=== PATIENT | male | born 1950 | race Caucasian/White ===

== ENCOUNTER 2020-01-20 20:35 | Emergency (ER) | payer MEDICARE, SELFPAY ==
[2020-01-20 20:38] VITALS: BP 112/72; PULSE 84; RESP 15; TEMP 36.7; O2SAT 100; BMI 22.4
[2020-01-20] MEDS: LIDOCAINE 1% W/EPI 1 ML SUBCUT (21:34)
--- NOTE | 2020-01-20 21:35 | PC.NURSE ---
at bedside for lac repair
--- NOTE | 2020-01-20 22:01 | ED.WOUNDLAC ---
HPI - Wound/Laceration General Chief Complaint: Wound/Laceration Stated Complaint: tripped on a stair, hit his head,swelling Time Seen by Provider: 01/20/20 20:50 Source: patient Mode of arrival: Family Vehicle Limitations: no limitations History of Present Illness HPI narrative: 69-year-old male otherwise healthy presents with his for a trip and fall with a head laceration. He takes no blood thinners, did not have a loss of consciousness and denies nausea or vomiting. He has been acting at his baseline since the injury. He tripped on a stair and fell striking his forehead on and upright pole in that he rolled when hitting the ground. He denies any other injury. He washed extensively, went to dinner with family and then came in for evaluation Onset (ago): hour(s) Location: scalp Place: home Patient tetanus UTD: Yes Context: accidental Associated symptoms: none Treatments prior to arrival: bandage Review of Systems Constitutional Constitutional: Denies chills, Denies fatigue, Denies fever(s), Denies frequent falls, Denies lethargy and Denies weakness Eyes Eyes: Denies change in vision, Denies eye discharge, Denies irritation and Denies loss of vision ENT Ears, Nose, Mouth, and Throat: Denies change in voice, Denies dizziness, Denies neck pain, Denies sore throat and Denies throat swelling Cardiovascular Cardiovascular: Denies chest pain, Denies irregular heart rhythm, Denies lightheadedness, Denies palpitations, Denies dyspnea, Denies dyspnea on exertion and Denies orthopnea Respiratory Respiratory: Denies cough, Denies dyspnea, Denies dyspnea on exertion and Denies wheezing Gastrointestinal Gastrointestinal: Denies abdominal pain, Denies change in bowel habits, Denies diarrhea, Denies nausea and Denies vomiting Musculoskeletal Musculoskeletal: Denies neck pain and Denies numbness Integumentary/Breasts Skin/Breast: Denies pruritus, Denies erythema, Denies rash and Reports wounds Neurologic Neurologic: Denies behavioral changes, Denies confusion, Denies dizziness, Denies frequent falls, Denies loss of vision, Denies numbness and Denies weakness Psychiatric Psychiatric: Denies anxiety, Denies behavioral changes, Denies confusion, Denies depression, Denies homicidal ideation and Denies suicidal ideation Endocrine Endocrine: Denies fatigue, Denies flushing and Denies palpitations Hematologic/Lymphatic Hematologic/Lymphatic: Denies easy bruising Allergic/Immunologic Allergic/Immunologic: Denies urticaria, Denies throat swelling and Denies wheezing Patient History Social History Smoking Status: Never smoker Smoking Status: Never smoker alcohol intake frequency: 0-2 drinks per day Substance Use Type: does not use Exam Narrative Exam Narrative: GEN: AOx3 and in mild distress, GCS 15 HEAD: 2.5 cm vertically oriented laceration on right forehead just below the hairline. No active bleeding. Small abrasion with contusion just lateral to this. Another much smaller 1 cm laceration on the left posterior parietal region with no active bleeding. No foreign body or contamination noted. No evidence of depressed skull fracture EYES: Pupils are equal, round, and reactive to light and accommodation. Extraoccular muscles are intact bilaterally. There is no subconjunctival hemorrhage or exudate. CHEST: Lungs are clear to auscultation bilaterally and free of wheezes, rales, or rhonchi. Heart rate is regular rhythm, there are no murmurs, clicks, rubs, or gallops. There is no chest wall tenderness. ABD: Abdomen is soft and nontender. There is no guarding or rebound. Bowel sounds are normal in all 4 quadrants. There is no mass or organomegaly. EXT: Full painless ROM of all extremities with no loss of sensation or strength. SKIN: Warm, pink, and dry. No erythema or rash Initial Vital Signs Initial Vital Signs: Vital Signs Temperature 98.0 F 01/20/20 20:38 Pulse Rate 84 01/20/20 20:38 Respiratory Rate 15 01/20/20 20:38 Blood Pressure 112/72 01/20/20 20:38 Pulse Oximetry 100 01/20/20 20:38 Procedures Laceration Repair Laceration 1: Site: face Side (If applicable): right Size (cm): 2.5 Description: linear Depth: simple, single layer Local Anesthetic: lidocaine 1% Amount of anesthesia used (mL): 4 Pre-repair: wound explored and deep structures intact Skin layer closed with: nylon Size (cm): 6-0 Number of sutures: 7 Technique: simple, interrupted Laceration 2: Site: scalp Side (If applicable): left Size (cm): 1.0 Description: linear Depth: simple, single layer Local Anesthetic: lidocaine 1% Pre-repair: wound explored Skin layer closed with: shantel Course Orders Ordered: Discontinued Medications Lidocaine/Epinephrine (Xylocaine 1% W/Epi) 1 ml SUBCUT NOW ONE Stop: 01/20/20 21:26 Last Admin: 01/20/20 21:34 Dose: 1 ml Documented by: TAB Vital Signs Vital signs: Vital Signs - 8 hr 01/20/20 20:38 Temperature 98.0 F Pulse Rate 84 Respiratory Rate 15 Blood Pressure 112/72 Pulse Oximetry 100 Discharge Plan Departure Patient Disposition: Home Clinical Impression: Laceration Discharge Date/Time: 01/20/20 22:44 Instructions: DI for Laceration Repair Activity Restrictions/Additional Instructions: Please keep the wound clean and dry to the best of your ability. Please monitor for signs of infection such as redness to the skin or increasing pain. Have the sutures removed by your doctor in about 7 days. If you are unable to get into your doctor, we would be happy to remove the sutures in that same timeframe.
[2020-01-20 22:30] VITALS: BP 126/67; PULSE 80; RESP 18; O2SAT 97
[2020-01-20 22:43] VITALS: BP 126/67; PULSE 87; RESP 17; O2SAT 98
== END 2020-01-20 22:44 | disposition home or self-care (01) ==
PROVIDERS: Emergency Provider Emergency Medicine
DX: S01.01XA Laceration without foreign body of scalp, initial encounter (principal); W19.XXXA Unspecified fall, initial encounter
CPT/HCPCS: 12001; 12011; 99281; 99283